=== PATIENT | male | born 1950 | race Caucasian/White ===

== ENCOUNTER 2017-09-13 17:52 | Emergency (ER) | END 2017-09-13 21:07 | disposition home or self-care (01) ==

== ENCOUNTER 2017-09-18 13:23 | Emergency (ER) | END 2017-09-18 15:54 | disposition home or self-care (01) ==

== ENCOUNTER 2017-12-28 17:31 | Emergency (ER) | END 2017-12-28 21:01 | disposition home or self-care (01) ==

== ENCOUNTER 2018-11-06 14:18 | Emergency (ER) | payer MEDICAID, OTHER ==
[~2018-11-06] VITALS: Ht 172.7 cm; Wt 96.0 kg
[~2018-11-06 14:18] MED LIST: ACET500C5 PO; CYCL10TA7 PO; IBUP-1542 PO
[2018-11-06 14:21] VITALS: BP 140/96; PULSE 93; RESP 18; Ht 172.7 cm; Wt 96.0 kg
--- NOTE | 2018-11-06 14:51 | ERD ---
ER Documentation Chief Complaint Chief Complaint HIVES HPI Patient is a 68 years old male with no known PMHx presenting to the clinic for pruritic rash x 5 days. Patient denies any abnormal interaction with plants, chemical substances, lotions, shampoo. Patient reports rash came about suddenly and worsening with each day. Patient denies fever, chills night seats and denies any OTC medication. ROS All systems reviewed and are negative except as per history of present illness. Medications Home Meds Active Scripts Methylprednisolone* (Medrol* DOSE PACK) 4 Mg/Dose-Pack Tab.ds.pk, 4 MG PO . DIRECTED for 5 Days, PACKET Prov:JEAN CLAUDE ARMSTRONG PA-C 11/06/18 Diphenhydramine-Zinc* Topical (Diphenhydramine-Zinc* Topical) 1%-28 Gm Cream..g., 1 APPLIC TOP TID for 10 Days, #120 GM Prov:JEAN CLAUDE ARMSTRONG PA-C 11/06/18 Ibuprofen* (Motrin*) 600 Mg Tab, 600 MG PO Q6, #30 TAB Prov:JULIAN POSEY PA-C 12/28/17 Acetaminophen* (Tylophen*) 500 Mg Capsule, 2 CAP PO Q8H PRN for PAIN AND OR ELEVATED TEMP, #20 CAP Prov:JULIAN POSEY PA-C 12/28/17 Cyclobenzaprine Hcl* (Cyclobenzaprine Hcl*) 10 Mg Tablet, 10 MG PO TID, #15 TAB Prov:NAOMY RUIZ PA-C 09/18/17 Ibuprofen* (Motrin*) 600 Mg Tab, 600 MG PO Q6, #20 TAB Prov:NASIR BARAJAS PA-C 09/13/17 Allergies Allergies: Coded Allergies: No Known Allergy (Unverified , 11/06/18) PMhx/Soc Medical and Surgical Hx: pt denies Surgical Hx History of Surgery: No Anesthesia Reaction: No Hx Neurological Disorder: No Hx Respiratory Disorders: No Hx Cardiac Disorders: Yes (Hyperlipidemia) Hx Psychiatric Problems: No Hx Miscellaneous Medical Probl: Yes (OA left knee, BPH) Hx Alcohol Use: No Hx Substance Use: No Hx Tobacco Use: No Smoking Status: Never smoker Physical Exam Vitals Vital Signs Date Temp Pulse Resp B/P (MAP) Pulse Ox O2 O2 Flow FiO2 Time Delivery Rate 11/06/18 98.8 93 18 140/96 99 14:21 (111) Physical Exam Const: No acute distress Head: Atraumatic Eyes: Normal Conjunctiva Resp: Clear to auscultation bilaterally Cardio: Regular rate and rhythm, no murmurs Skin: Diffuse wheel rash on torso and bilateral upper extremity. No induration, no pus drainage no excoriation. Neur: Awake and alert Psych: Normal Mood and Affect Results 24 hrs Current Medications Medications Dose Sig/Sindy Start Time Status Last (Trade) Ordered Route PRN Stop Time Admin Dose Reason Admin 10 mg ONCE ONCE 11/06/18 DC 11/06/18 Dexamethasone IM 15:00 14:55 (Decadron) 11/06/18 15:01 50 mg ONCE ONCE 11/06/18 DC 11/06/18 Diphenhydrami IM 15:00 14:55 ne HCl 11/06/18 15:01 (Benadryl) Procedures/MDM Patient was seen and evaluated for rash which is most likely contact dermatitis vs heat rash. Patient is stable and ready for discharge. Patient was advised to f/u with PCP. Patient reports that his will come and pick him up. Departure Diagnosis: Primary Impression: Rash Condition: Stable Patient Instructions: Contact Dermatitis Referrals: [facility] Additional Instructions: Patient advised to return to the ED immediately for new or worsening symptoms. Patient advised to follow up with primary care provider in the next 24-48 hours. Patient verbalized understanding and agrees with treatment plan and course of action. If patient has no primary care they may follow up with [facility] + [address] [address] or [facility] [address] [place] [address] or [facility] [address] [place] [address] JEAN CLAUDE ARMTSRONG PA-C Nov 06, 2018 14:51
[2018-11-06] MEDS ORDERED: DIPHENHYDRAMINE 50 MG INJ IM ONE (15:00)
[2018-11-06] MEDS ORDERED: DEXAMETHASONE 10 MG/ML 1 ML INJ IM ONE (15:00)
[2018-11-06] MEDS ORDERED: DIPH28.32 TOP (15:05)
[2018-11-06] MEDS ORDERED: MED4DP PO (15:05)
== END 2018-11-06 15:53 | disposition home or self-care (01) ==
LOC: FTE 14:18
DX: R21 Rash and other nonspecific skin eruption (principal)
CPT/HCPCS: 96372; 99284; J1100; J1200

== ENCOUNTER 2018-12-30 17:52 | Emergency (ER) | payer OTHER ==
[~2018-12-30] VITALS: Ht 170.2 cm; Wt 96.0 kg
[~2018-12-30 17:52] MED LIST changes: +DIPH28.32 TOP; +IBUP800T48 PO; +MED4DP PO; +TRAM50TA2 PO
[2018-12-30 18:06] VITALS: Ht 170.2 cm; Wt 96.0 kg
[2018-12-30] MEDS ORDERED: IBUPROFEN 600 MG TAB PO ONE (18:30)
[2018-12-30] MEDS ORDERED: KETOROLAC 30 MG INJ IM STA (18:38)
--- NOTE | 2018-12-30 19:01 | ERD ---
ER Documentation Chief Complaint Chief Complaint PT reports L foot pain HPI 68-year-old male presents with left foot pain after stepping down from his truck 3 days ago. 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 Denies any fall. Denies any restricted range of motion, defic its or weakness. Denies any bleeding or redness or lacerations. Patient has a branch operations specialist appointment pending for some chronic pain in his distal MTP area. ROS All systems reviewed and are negative except as per history of present illness. Medications Home Meds Active Scripts Ibuprofen* (Motrin*) 600 Mg Tab, 600 MG PO Q6, #20 TAB Prov:ARCELIA LOUIS MD 12/30/18 Tramadol HCl (Tramadol HCl) 50 Mg Tablet, 50 MG PO Q4 PRN for PAIN, #20 TAB Prov:ARCELIA LOUIS MD 12/30/18 Methylprednisolone* (Medrol* DOSE PACK) 4 Mg/Dose-Pack Tab.ds.pk, 4 MG PO . DIRECTED for 5 Days, PACKET Prov:JEAN CLAUDE ARMSTRONG PA-C 11/06/18 Diphenhydramine-Zinc* Topical (Diphenhydramine-Zinc* Topical) 1%-28 Gm Cream..g., 1 APPLIC TOP TID for 10 Days, #120 GM Prov:JEAN CLAUDE ARMSTRONG PA-C 11/06/18 Ibuprofen* (Motrin*) 600 Mg Tab, 600 MG PO Q6, #30 TAB Prov:JULIAN POSEY PA-C 12/28/17 Acetaminophen* (Tylophen*) 500 Mg Capsule, 2 CAP PO Q8H PRN for PAIN AND OR ELEVATED TEMP, #20 CAP Prov:JULIAN POSEY PA-C 12/28/17 Cyclobenzaprine Hcl* (Cyclobenzaprine Hcl*) 10 Mg Tablet, 10 MG PO TID, #15 TAB Prov:NAOMY RUIZ PA-C 09/18/17 Ibuprofen* (Motrin*) 600 Mg Tab, 600 MG PO Q6, #20 TAB Prov:NASIR BARAJAS PA-C 09/13/17 Allergies Allergies: Coded Allergies: No Known Allergy (Unverified , 11/06/18) PMhx/Soc History of Surgery: No Anesthesia Reaction: No Hx Neurological Disorder: No Hx Respiratory Disorders: No Hx Cardiac Disorders: Yes (Hyperlipidemia) Hx Psychiatric Problems: No Hx Miscellaneous Medical Probl: Yes (OA left knee, BPH) Hx Alcohol Use: No Hx Substance Use: No Hx Tobacco Use: No Smoking Status: Never smoker FmHx Family History: No diabetes, No coronary disease, No other Physical Exam Vitals Vital Signs Date Temp Pulse Resp B/P (MAP) Pulse Ox O2 O2 Flow FiO2 Time Delivery Rate 12/30/18 98.3 95 16 131/81 97 18:06 (98) Physical Exam Const: No acute distress Head: Atraumatic Eyes: Normal Conjunctiva ENT: Normal External Ears, Nose and Mouth. Neck: Full range of motion. No meningismus. Resp: Clear to auscultation bilaterally Cardio: Regular rate and rhythm, no murmurs Abd: Soft, non tender, non distended. Normal bowel sounds Skin: No petechiae or rashes Back: No midline or flank tenderness Ext: No cyanosis, or edema. Tenderness over the base of left hip fifth metatarsal area with mild swelling. No deformities, restricted range of motion, deficits, warmth or erythema. Neur: Awake and alert Psych: Normal Mood and Affect Results 24 hrs Current Medications Medications Dose Sig/Sindy Start Time Status Last (Trade) Ordered Route PRN Stop Time Admin Dose Reason Admin Ibuprofen 600 mg ONCE ONCE 12/30/18 DC (Motrin) PO 18:30 12/30/18 18:39 Ketorolac 30 mg ONCE STAT 12/30/18 DC 12/30/18 Tromethamine IM 18:38 12/30/18 18:43 (Toradol) 18:39 Procedures/MDM X-ray Foot 3V Interpreted by me: Bones: No fracture Joints: No dislocation Foreign body: None. Impression-no acute fracture dislocation on left foot x- ray She given Toradol 30 mg IM. Patient presents with signs and symptoms of left foot sprain without signs of fracture, dislocation, ischemia, deficits or infection. He was placed in a left lower extremity postop shoe and was neurovascular intact after the shoe. Charged home with a prescription for ibuprofen, tramadol, recommendations for podiatry follow-up as scheduled, return precautions for fevers, redness, new worsening symptoms. Departure Diagnosis: Primary Impression: Injury of foot Encounter type: initial encounter Laterality: left Qualified Codes: S99.922A - Unspecified injury of left foot, initial encounter Condition: Stable Patient Instructions: Sprain Foot Referrals: DOCTOR,NOT ON STAFF (PCP) Additional Instructions: X-ray read as normal. Likely sprain. Recommend ice at home. See branch operations specialist as scheduled. Recheck for fevers, redness, new worsening symptoms. ARCELIA LOUIS MD Dec 30, 2018 19:01
[2018-12-30 19:08] VITALS: BP 133/77; PULSE 78; RESP 16
== END 2018-12-30 19:09 | disposition home or self-care (01) ==
LOC: FTE 17:52
DX: S99.922A Unspecified injury of left foot, initial encounter (principal); X58.XXXA Exposure to other specified factors, initial encounter; Y92.9 Unspecified place or not applicable
CPT/HCPCS: 73630; 96372; 99284; J1885; L3260

== ENCOUNTER 2019-01-17 21:21 | Emergency (ER) | payer OTHER ==
[~2019-01-17] VITALS: Ht 170.2 cm; Wt 103.0 kg
[2019-01-17 21:27] VITALS: Ht 170.2 cm; Wt 103.0 kg
[2019-01-18] MEDS ORDERED: IBUPROFEN 600 MG TAB PO ONE
[2019-01-18 00:21] VITALS: BP 169/89; PULSE 59; RESP 22
== END 2019-01-18 00:23 | disposition home or self-care (01) ==
LOC: FTE 21:21
DX: R04.0 Epistaxis (principal)

== ENCOUNTER 2019-01-21 11:09 | Emergency (ER) | payer SELFPAY ==
[~2019-01-21] VITALS: Ht 175.3 cm; Wt 90.0 kg
[2019-01-21 11:14] VITALS: BP 147/71; PULSE 84; RESP 18; Ht 175.3 cm; Wt 90.0 kg
== END 2019-01-21 15:09 | disposition left against medical advice (07) ==
LOC: E/R 11:09
DX: Z53.21 Procedure and treatment not carried out due to patient leaving prior to being seen by health care provider (principal)